=== PATIENT | female | born 1985 | race Caucasian/White ===

== ENCOUNTER 2020-06-02 05:11 | Inpatient (IN) | payer OTHER ==
[2020-06-02] MEDS ORDERED: ePHEDrine SULFATE 50 MG/1 ML INJ IV PRN ×2 (06:12→07:30)
[2020-06-02] MEDS ORDERED: LOPERAMIDE 2 MG CAP PO PRN (06:12)
[2020-06-02] MEDS ORDERED: fentaNYL 100 MCG/2 ML INJ IV PRN (06:12)
[2020-06-02] MEDS ORDERED: CARBOPROST TROMETHAMINE 250 MCG/1 ML INJ IM PRN (06:12)
[2020-06-02] MEDS ORDERED: NALOXONE 0.4 MG/1 ML INJ IV PRN (06:12)
[2020-06-02] MEDS ORDERED: LIDOCAINE (2%) 20 MG/1 ML VIAL 20 ML MDV INFILTRATI ONE (06:12)
[2020-06-02] MEDS ORDERED: OXYTOCIN 10 UNIT/1 ML INJ IM PRN (06:12)
[2020-06-02] MEDS ORDERED: ONDANSETRON 4 MG/2 ML INJ IV PRN ×2 (06:12→09:30)
[2020-06-02] MEDS ORDERED: TERBUTALINE 1 MG/1 ML INJ SUB-Q PRN ×2 (06:12→07:30)
[2020-06-02] MEDS ORDERED: MINERAL OIL 30 ML ORAL LIQD PO PRN ×2 (06:12→07:30)
[2020-06-02] MEDS ORDERED: METHYLERGONOVINE MALEATE 0.2 MG/ML VIAL IM PRN (06:12)
[2020-06-02] MEDS ORDERED: LACTATED RINGERS 1,000 ML IV SCH ×2 (06:15→08:00)
[2020-06-02 06:36] LABS: Hematocrit 37.4 % (30.3-42.9); Hemoglobin 12.5 gm/dl (10.1-14.3); Mean Corpuscular HGB Conc 34 % (30-34); Mean Corpuscular Volume 90 fl (79-97); Platelet Count 234 K/mm3 (140-440); Red Blood Count 4.17 M/mm3 (3.65-5.03)
[2020-06-02] MEDS ORDERED: OXYTOCIN DRIP 30 UNITS/500 ML BAG IV SCH ×3 (07:00→07:30)
--- NOTE | 2020-06-02 07:08 | History and Physical Report ---
History of Present Illness Date of examination: 06/02/20 Date of admission: 06/02/20 06:12 Chief complaint: labor History of present illness: Patient is a 34-year-old 3 para 0 3 para 2-0-0-2 patient will need a clinic visit nausea she presented in labor group B strep test was negative blood type was O+ antibody screen was negative Pap was normal rubella immune VDRL urine culture and hepatitis panel were also negative HIV test was negative chlamydia and gonorrhea tests were negative X was negative for fibrosis this was negative she did have ultrasound for this which was normal hematocrit is 35% patient presents having had care and she had a benign course past medical history is negative past medical history is pos itive for hypertension and diabetes and a history of gestational thrombocytopenia review of systems is noncontributory she does have a niece that has mental retardation patient is admitted at 7 cm dilatation of ascending face +1 +2 station in active labor. Past History Past Surgical History: no surgical history Family/Genetic History: diabetes, hypertension Social history: () - Obstetrical History Expected Date of Delivery: 06/13/20 Actual Gestation: 38 Week(s) 3 Day(s) : 3 Para: 2 Hx # Term Pregnancies: 2 Number of Pregnancies: 0 Spontaneous Abortions: 0 Induced : 0 Number of Living Children: 2 Medications and Allergies Allergies Allergy/AdvReac Type Severity Reaction Status Date / Time No Known Allergies Allergy Unverified 01/07/14 18:10 Home Medications Medication Instructions Recorded Confirmed Last Taken Type Pnv,Calcium 72/Iron/Folic Acid 1 tab PO DAILY 01/08/14 01/08/14 Unknown History [Pnv Plus Multivit Tab] Ferrous Sulfate [Iron Supplement] 325 mg PO BID #60 tablet 01/09/14 Unknown Rx Ibuprofen [Motrin 600 MG tab] 600 mg PO Q6HR #30 tablet 01/09/14 Unknown Rx oxyCODONE /ACETAMINOPHEN [Percocet 2 tab PO Q4H PRN #30 tablet 01/09/14 Unknown Rx 5/325 mg] Active Meds: Active Medications Carboprost Tromethamine (Carboprost Tromethamine 250 Mcg/1 Ml Inj) 250 mcg IM ONCE PRN PRN Reason: Uterine Bleeding Ephedrine Sulfate (Ephedrine Sulfate 50 Mg/1 Ml Inj) 10 mg IV Q2M PRN PRN Reason: Hypotension Fentanyl (Fentanyl 100 Mcg/2 Ml Inj) 100 mcg IV Q2H PRN PRN Reason: Pain,Severe (7-10) LABOR PAIN Lactated Ringer's (Lactated Ringers) 1,000 mls @ 125 mls/hr IV DIRECT SUKUMAR Last Admin: 06/02/20 06:27 Dose: 125 mls/hr Documented by: Oxytocin/Sodium Chloride (Pitocin/Ns 30 Unit/500ml) 30 units in 500 mls @ 40 mls/hr IV TITR SUKUMAR; Protocol Loperamide HCl (Loperamide 2 Mg Cap) 2 mg PO ONCE PRN PRN Reason: give with Hemabate Methylergonovine Maleate (Methylergonovine Maleate 0.2 Mg/Ml Vial) 0.2 mg IM ONCE PRN PRN Reason: Uterine Bleeding Mineral Oil (Mineral Oil 30 Ml Oral Liqd) 30 ml PO QHS PRN PRN Reason: Constipation Naloxone HCl (Naloxone 0.4 Mg/1 Ml Inj) 0.1 mg IV Q2MIN PRN PRN Reason: Res Rate </= 8 or 02 SAT < 92% Ondansetron HCl (Ondansetron 4 Mg/2 Ml Inj) 4 mg IV Q8H PRN PRN Reason: Nausea And Vomiting Oxytocin (Oxytocin 10 Unit/1 Ml Inj) 10 unit IM ONCE PRN PRN Reason: Uterine Bleeding Terbutaline Sulfate (Terbutaline 1 Mg/1 Ml Inj) 0.25 mg SUB-Q ONCE PRN PRN Reason: Hyperstimulation/Hypertonicity Review of Systems All systems: negative - Vital Signs Vital signs: Vital Signs Temp Resp 98.7 F 18 06/02/20 05:49 06/02/20 05:49 Temp Pulse Resp BP Pulse Ox 99.2 F 71 18 154/93 06/02/20 06:16 06/02/20 05:57 06/02/20 05:49 06/02/20 05:57 - Physical Exam Breasts: Cardiovascular: Regular rate, Normal S1, Normal S2 Lungs: Positive: Clear to auscultation Abdomen: Positive: normal appearance, soft, normal bowel sounds. Negative: distention, tenderness Genitourinary (Female): Positive: normal external genitalia Vulva: both: normal Vagina: Positive: normal moisture. Negative: discharge Cervix: Negative: lesion, discharge Uterus: Positive: normal size, enlarged, normal contour Adnexa: both: normal Anus/Rectum: Positive: normal perianal skin, heme negative. Negative: rectal mass, hemorrhoids Extremities: Deep Tendon Reflex Grade: Normal +2 - Obstetrical FHR: auscultation normal, category 1 Uterine Contraction Monitor Mode: External Uterine Contraction Pattern: Regular Uterine Contraction Intensity: Strong/Firm (active labor) Results Result Diagrams: 06/02/20 06:00 Abnormal lab results 06/02/20 Range/Units 06:00 WBC 14.8 H (4.5-11.0) K/mm3 RDW 16.0 H (13.2-15.2) % All other labs normal. Assessment and Plan Active labor at 38 weeks gestation plan vaginal delivery.
[2020-06-02] MEDS ORDERED: LIDOCAINE (2%) 20 MG/1 ML VIAL 20 ML MDV INFILTRATI SCH (07:30)
--- NOTE | 2020-06-02 08:52 | Procedure Note ---
Pre-op diagnosis: term , active labor Post-op diagnosis: other (persistent op, large for getational age) Estimated blood loss: 50-100ml Pathology: none Specimen disposition: discarded Condition: stable Disposition: PACU
[2020-06-02] MEDS ORDERED: WITCH HAZEL/ GLYCERIN PAD TP PRN (09:30)
[2020-06-02] MEDS ORDERED: LANOLIN/ZINC/DIMETHICONE (LANSINOH) 7 GM TP PRN (09:30)
[2020-06-02] MEDS ORDERED: diphenhydrAMINE 25 MG CAP PO PRN (09:30)
[2020-06-02] MEDS ORDERED: PROMETHAZINE 25 MG RECT SUPP PR PRN (09:30)
[2020-06-02] MEDS: IBUPROFEN 600 MG TAB PO SCH ×2 (09:39→21:00)
[2020-06-02] MEDS ORDERED: PROMETHAZINE 25 MG TAB PO PRN (10:00)
[2020-06-02] MEDS ORDERED: ACETAMINOPHEN 325 MG TAB PO PRN (12:30)
[2020-06-02] MEDS ORDERED: oxyCODONE /ACETAMINOPHEN 5-325MG TAB PO PRN (13:30)
[2020-06-02 20:59] LABS: Hematocrit 31.5 % (30.3-42.9); Hemoglobin 10.3 gm/dl (10.1-14.3)
[2020-06-02] MEDS ORDERED: MAGNESIUM HYDROXIDE (MOM) ORAL LIQD UDC PO PRN (22:00)
[2020-06-03] MEDS: IBUPROFEN 600 MG TAB PO SCH ×4 (02:32→23:56)
--- NOTE | 2020-06-03 09:34 | Progress Note ---
Assessment and Plan A: S/P P: D/C home today per pt's request Subjective - Subjective Date of service: 06/03/20 Principal diagnosis: s/p Patient reports: appetite normal, voiding normally, pain well controlled, ambulating normally : doing well, bottle feeding Objective - Vital Signs Latest vital signs: Vital Signs Temp Pulse Resp BP BP Pulse Ox 06/03/20 08:50 97.9 F 71 17 105/53 98 06/03/20 02:32 18 06/03/20 00:00 98.6 F 74 16 101/74 06/02/20 21:00 98.0 F 72 18 115/65 97 06/02/20 16:35 98.2 F 18 06/02/20 16:34 75 111/61 97 06/02/20 14:11 18 06/02/20 12:30 98.1 F 80 18 113/59 98 06/02/20 09:58 82 120/72 Intake and Output 06/02/20 06/03/20 06/03/20 22:59 06:59 14:59 Intake Total 300 300 Output Total 600 Balance -300 300 Intake: Intake, Free Water 300 300 Output: Urine 600 Void 600 Other: Total, Output Amount 600 # Voids Void 1 1 - Exam Abdomen: Present: normal appearance, soft, normal bowel sounds Vulva: both: normal Uterus: Present: normal, firm, fundal height below umbilicus Extremities: Present: normal
--- NOTE | 2020-06-03 09:43 | Discharge Summary ---
Providers - Providers Date of Admission: 06/02/20 06:12 Date of discharge: 06/03/20 Attending physician: KOKI NOBLE MD Primary care physician: KOKI NOBLE MD Hospitalization Reason for admission: active labor Delivery: Episiotomy: midline Other procedures: none complications: none Discharge diagnosis: IUP at term delivered baby: female Hospital course: Pt was admitted in labor and had a w/o pp complications. See H&P, delivery summary, and pp notes. Condition at discharge: Stable Disposition: DC-01 TO HOME OR SELFCARE Plan - Discharge Medications Prescriptions: Ibuprofen [Motrin 600 MG tab] 600 mg PO Q6H #30 tablet - Provider Discharge Summary Activity: routine, no sex for 6 weeks, no heavy lifting 4 weeks, no strenuous exercise Diet: routine Instructions: routine Additional instructions: [] Smoking cessation referral if applicable(refer to patient education folder for contact #) [] Refer to [facility]'s [facility] Booklet Call your doctor immediately for: * Fever > 100.5 * Heavy vaginal bleeding ( >1 pad per hour) * Severe persistent headache * Shortness of breath * Reddened, hot, painful area to leg or breast * Drainage or odor from incision. * Keep incision clean and dry at all times and follow doctor's instructions regarding bathing/showering - Follow up plan Follow up: KOKI NOBLE MD [Primary Care Provider] - 6 Weeks
[2020-06-04] MEDS: IBUPROFEN 600 MG TAB PO SCH ×2 (05:36→11:45)
[2020-06-04 16:49] VITALS: BP 109/68
== END 2020-06-04 18:33 | disposition home or self-care (01) | DRG 806 ==
LOC: TRG 05:11 → APU 05:12 → LD 06:12 → TRG 06:12 → OB 11:39
PROC: 10E0XZZ Delivery of Products of Conception, External Approach (ICD-10-PCS; principal; 2020-06-02)
PROC: 0W8NXZZ Division of Female Perineum, External Approach (ICD-10-PCS; 2020-06-02)
DX: O24.92 Unspecified diabetes mellitus in childbirth (principal); O10.92 Unspecified pre-existing hypertension complicating childbirth; Z37.0 Single live birth; Z20.822 Contact with and (suspected) exposure to COVID-19; Z3A.38 38 weeks gestation of pregnancy; Z82.49 Family history of ischemic heart disease and other diseases of the circulatory system; Z83.3 Family history of diabetes mellitus; Z79.899 Other long term (current) drug therapy
CPT/HCPCS: 36415; 59025; 85014; 85018; 85027; 86592; 86850; 86900; 86901; 96360; 96372; G0378; J2590; J7120; U0003